=== PATIENT | male | born 1970 | race Caucasian/White ===

== ENCOUNTER 2023-10-30 21:59 | Emergency (ER) | payer SELFPAY ==
[2023-10-30 22:02] VITALS: BP 127/71
[2023-10-30] MEDS: THORAZINE 25 MG IM (23:27)
--- NOTE | 2023-10-30 23:30 | ED.GENMED ---
History of Present Illness
General
Chief Complaint: Abdominal Symptoms
Time Seen by Provider: 10/30/23 22:46
Travel History
Have you had any contact with someone who has COVID-19?: No
Do you have any symptoms of coronavirus? Fever > 100 degrees, chills, cough, shortness of breath, sore throat, loss of taste or smell, muscle aches, or headache?: No
History of Present Illness
History of Present Illness:
53-year-old male presents to the emergency department for evaluation of intractable hiccups ongoing for the last 2 weeks. He states that in the week prior to this he developed flulike symptoms with fever and coughing, this gradually improved over
the course of a week. He was not treated with any antivirals or antibiotics. He states that the hiccups do seem to be intermittent but primarily provoked by oral liquid or solid intake. He denies any chest pain. During profound periods of
hiccups he notes that it feels as though he cannot breathe. Denies any vomiting or diarrhea. No night sweats or weight loss. He is a non-smoker. He was seen in urgent care earlier this week and given prescriptions for baclofen and then
ultimately metoclopramide without change in symptoms
Review of Systems
Review of Systems
Allergies reviewed?: Yes
All Other Systems: ROS reviewed and negative except as documented in HPI and ROS
Phy Exam
Physical Exam
Physical Exam:
GEN: Well appearing, NAD, WDWN
HEENT: Oral mucosa moist, no scleral icterus
Cardiac: Regular rate and rhythm, no murmur
Lung: No respiratory distress, no tachypnea, lungs clear to auscultation
Abdomen: Soft, nontender, no masses
MSK: No gross deformity or injuries
Skin: Good color, no pallor or jaundice, no rashes
Neuro: AO x3, moves all extremities freely
Psych: Calm, cooperative
Course
Orders/Labs/Results
Orders:
Orders
10/30/23 23:12
ChlorproMAZINE [Thorazine] 25 mg IM NOW STA
Vital Signs
Initial and Last Documented VS:
Initial Vital Signs
Temp Pulse BP Pulse Ox
97.9 F 68 127/71 97
10/30/23 22:02 10/30/23 22:02 10/30/23 22:02 10/30/23 22:02
Last Documented Vital Signs
Temp Pulse BP Pulse Ox
97.9 F 68 127/71 97
10/30/23 22:02 10/30/23 22:02 10/30/23 22:02 10/30/23 22:02
MDM/Problems Addressed
MDM/Problems Addressed:
Patient was given IM Thorazine and observed the emergency department, after oral intake he had no further hiccups. Patient's symptoms do sound somewhat convincing for esophageal spasms given the sensation of shortness of breath during the episodes
of severe hiccups. Will treat him empirically with a 2-week course of PPIs in addition to oral Thorazine although the patient is advised that this is not as beneficial in the clinical setting when given orally and not parenterally. Recommend
outpatient GI follow-up if symptoms persist
*Critical Care Note
Total Time (30-74mins, 75-104mins- exclusive of procedures): Not Applicable
ED Attending Note
-
Portions of this chart may have been created with voice recognition software.� Occasional wrong word or��sound alike� substitutions may have occurred due to the inherent limitations of voice recognition software.
Discharge Plan
Departure
Patient Disposition: Home (Routine Discharge)
Date of Disposition: 10/31/23
Time of Disposition: 00:19
Patient with high blood pressure during this ER visit?: No
Discharge Problem:
Intractable singultus
Instructions: Hiccups
Prescriptions:
New
chlorpromazine 25 mg tablet
25 mg PO Q6H PRN (Reason: hiccups) Qty: 20 0RF
pantoprazole [Protonix] 40 mg tablet,delayed release (DR/EC)
40 mg PO DAILY Qty: 14 0RF
Referrals:
Zeb Hodge MD [Active] -
Activity Restrictions/Additional Instructions:
Stop taking the metoclopramide and baclofen immediately
Follow up with gastroenterology if symptoms persist
Interventions
Interventions:
*Risk Screen - Suicide Last Done: 10/30/23 23:00
*General Assessment Last Done: 10/30/23 22:10
*Neglect/Abuse Screening Last Done: 10/30/23 23:00
*ED COVID-19 Vaccine History Last Done: 10/30/23 22:10
*Nursing Disposition Last Done: 10/31/23 00:25
J[id number]py[facility] Assessment Last Done: 10/30/23 23:00
Discharge Date and Time
Discharge Date/Time: 10/31/23 00:26
== END 2023-10-31 00:26 | disposition home or self-care (01) ==
LOC: EMR 21:59
PROVIDERS: EMERGENCY PHYSICIAN Emergency Medicine
DX: R06.6 Hiccough (principal); R50.9 Fever, unspecified; R05.9 Cough, unspecified; Z88.0 Allergy status to penicillin
CPT/HCPCS: 99284; 96372